=== PATIENT | female | born 1985 | race Two or more races ===

== ENCOUNTER 2020-12-15 08:52 | Inpatient (IN) | payer OTHER ==
[~2020-12-15] VITALS: Ht 152.4 cm; Wt 76.2 kg
[2020-12-15] MEDS ORDERED: TOPROL XL25 M1 PO (09:52)
[2020-12-15] MEDS ORDERED: PEPCID AC20 MG PO (09:53)
[2020-12-15] MEDS ORDERED: PRENA1 CHEW TA1.4 MG PO (09:57)
== END 2020-12-18 16:25 | disposition home or self-care (01) | DRG 784 ==
LOC: OB/GYN 08:52 → LDR 08:52 → OB/GYN 18:14
PROVIDERS: ADMIT Obstetrics & Gynecology; ATTEND Obstetrics & Gynecology
PROC: 0UB60ZZ Excision of Left Fallopian Tube, Open Approach (ICD-10-PCS; 2020-12-15)
PROC: 4A1HXFZ Monitoring of Products of Conception, Cardiac Rhythm, External Approach (ICD-10-PCS; 2020-12-15)
PROC: 10D00Z1 Extraction of Products of Conception, Low, Open Approach (ICD-10-PCS; principal; 2020-12-15 13:15)
DX: O34.211 Maternal care for low transverse scar from previous cesarean delivery (principal); O10.02 Pre-existing essential hypertension complicating childbirth; Z30.2 Encounter for sterilization; N99.4 Postprocedural pelvic peritoneal adhesions; N73.6 Female pelvic peritoneal adhesions (postinfective); Z53.8 Procedure and treatment not carried out for other reasons; Z3A.38 38 weeks gestation of pregnancy; Z37.0 Single live birth